=== PATIENT | male | born 1940 | race African-American/Black ===

== ENCOUNTER 2016-12-16 09:35 | Emergency (ER) | payer MEDICARE, OTHER ==
[~2016-12-16] VITALS: Ht 162.6 cm; Wt 85.0 kg
--- NOTE | ~2016-12-16 | EKG ---
PATIENT: THA HOPSON UNIT #: [id number] Ventricular Rate: 61 BPM Atrial Rate: 61 BPM P-R Interval: 188 ms QRS Duration: 82 ms Q-T Interval: 398 ms QTC Calculation(Bezet): 400 ms P Albert: 63 degrees Calculated R Albert: 42 degrees Calculated T Albert: 71 degrees Diagnosis Line: Sinus rhythm with marked sinus arrhythmia Diagnosis Line: Otherwise normal ECG Diagnosis Line: When compared with ECG of 09-JUN-2010 14:17, Diagnosis Line: Vent. rate has decreased BY 41 BPM Diagnosis Line: Confirmed by AILEEN CHEW MD ([id number]) on Diagnosis Line: 12/17/2016 4:59:20 PM INTERPRETING MD: FRANCO
--- NOTE | ~2016-12-16 | CR72 ---
[facility] A Service of [facility] & [facility] RADIOLOGY TEXT RESULTS PATIENT: THA HOPSON LOCATION: [facility] : 39 UNIT #: [id number] AGE: [address]: Reji Conroy MD SEX: M ORDER DR: [id number] [facility] [address] [place], [place] [address] [id number] E MR#: [id number] Acc #: [id number] NAME: THA HOPSON : 1940 SEX: M STUDY DATE/TIME: 12/16/2016 10:20 UNIT: [facility] ROOM: STUDY DESCRIPTION: CR Chest Single View Portable Attending Physician: Reji Conroy M.D. Ordering Physician: Reji Conroy M.D. Primary Care Physician: Trey Moore M.D. MEDICAL IMAGING REPORT This report is preliminary unless electronic signature is present EXAM Portable chest INDICATION Dyspnea today. COMPARISON 03/14/2016 FINDINGS Stable elevation of the left hemidiaphragm with chronic left base scarring/atelectasis. Heart size stable. Visualized osseous structures unremarkable. IMPRESSION No active disease. Dictated by... Arthur Curiel M.D. THIS IS AN ELECTRONICALLY VERIFIED REPORT Arthur Curiel M.D. at 12/17/2016 7:34 AM OLIVIA/kalpesh TD: 12/17/2016 06:58 JOB #: [id number] MEDICAL IMAGING REPORT Page 1 of 1 COPY
[~2016-12-16 09:35] MED LIST: ACETAMINOPHEN PO; AVANDIA PO; BACTRIM DS TABL1 TAB PO; CELLCEPT PO; CLONIDINE PO; COLACE PO; DIOVAN PO; FLOMAX0.4 MG PO; GENGRAF PO; GLYBURIDE PO; GLYNASE PO; LISINOPRIL PO; METOCLOPRAMI10 MG/ML PO; MUCINEX DM1 TAB.SR . PO; NEORAL100 MG/ML PO; OXAPROZIN600 MG PO; PREDNISOLO15 MG/5 ML PO; PREDNISONE PO; PRILOSEC PO; SULAR PO; TAMIFLU75 MG PO; ZOCOR PO
[2016-12-16 10:05] LABS: BASOPHIL# 0.1 X10e3 (0-0.3); BASOPHIL% 0.7 % (0-2.5); DIFF IND NO; EOSINOPHIL# 0.2 X10e3 (0-0.7); EOSINOPHIL% 2.9 % (0.0-7.0); HEMATOCRIT 37.2 % (38.0-50.0); HEMOGLOBIN 12.2 gm/dL (13.0-16.0); LYMPHOCYTE# 1.8 X10e3 (1.0-3.5); LYMPHOCYTE% 23.7 % (17.0-45.0); MEAN CORPUSCULAR HEMOGLOBIN 26.9 PG (28-34); MEAN CORPUSCULAR HGB CONC 32.8 g/dL (30-36); MEAN PLATELET VOLUME 7.7 FL (6.5-11.5); MONOCYTE# 0.5 X10e3 (0-1.0); MONOCYTE% 6.1 % (3.0-12.0); NEUTROPHIL# 5.1 X10e3 (1.5-7.1); NEUTROPHIL% 66.6 % (40-75); PLATELET COUNT 199 X10e3 (140-420); RED BLOOD COUNT 4.53 X10e (3.90-5.60); WHITE BLOOD COUNT 7.6 X10e3 (4.0-10.5)
[2016-12-16 10:17] LABS: POC - CKMB 1.6 ng/mL (0.0-7.9); POC - TROPONIN <0.05 ng/mL (<=0.05)
[2016-12-16 10:18] LABS: INR 0.9; PROTHROMBIN TIME (PATIENT) 10.3 SECONDS (10.0-11.7)
[2016-12-16 10:34] LABS: ALBUMIN SERUM 3.5 g/dL (3.5-5.0); BILIRUBIN, DIRECT 0.1 mg/dL (0.0-0.2); BILIRUBIN,INDIRECT 0.4 mg/dL (0.0-0.9); BILIRUBIN,TOTAL 0.5 mg/dL (0.2-2.0); BUN/CREATININE RATIO 18.18; CALCIUM SERUM 8.5 mg/dL (8.4-10.2); CREATININE SERUM 1.1 mg/dL (0.6-1.4); GLOM FILT RATE Estimated 74.7 mL/min (>60); POTASSIUM 3.8 mmol/L (3.5-5.1); PROTEIN TOTAL SERUM 6.9 g/dL (6.0-8.3)
[2016-12-16] MEDS ORDERED: CLARITIN10 M3 PO (10:48)
[2016-12-16] MEDS ORDERED: LIPITOR PO (10:49)
[2016-12-16] MEDS ORDERED: VITAMIN D10000 UNIT PO (10:49)
[2016-12-16] MEDS ORDERED: AMLODIPINE BESYL5 MG PO (10:50)
[2016-12-16] MEDS ORDERED: GLUCOTROL10 MG PO (10:50)
[2016-12-16] MEDS ORDERED: LANTUS SOL100 UNIT/1 SUBQ (10:50)
[2016-12-16] MEDS ORDERED: ZANTAC150 M1 PO (10:51)
== END 2016-12-16 11:15 | disposition home or self-care (01) ==
LOC: CED 09:35
PROVIDERS: Emergency Medicine
DX: R06.02 Shortness of breath (principal); I10 Essential (primary) hypertension; Z87.442 Personal history of urinary calculi; Z79.899 Other long term (current) drug therapy; Z79.4 Long term (current) use of insulin
CPT/HCPCS: 36415; 71010; 80048; 80076; 82553; 83880; 84484; 85025; 85610; 87040; 93005; 99285

== ENCOUNTER 2017-01-06 19:20 | Emergency (ER) | payer MEDICARE, OTHER ==
[~2017-01-06] VITALS: Ht 162.6 cm; Wt 83.9 kg
--- NOTE | ~2017-01-06 | MR18 ---
[facility] A Service of [facility] RADIOLOGY TEXT RESULTS PATIENT: THA HOPSON LOCATION: [facility] : 38 UNIT #: [id number] AGE: [address]: Chencho Adams MD SEX: M ORDER DR: [id number] [facility] [address] [place], [place] [address] [id number] E MR#: [id number] Acc #: [id number] NAME: THA HOPSON : 1940 SEX: M STUDY DATE/TIME: 01/06/2017 22:27 UNIT: [facility] ROOM: STUDY DESCRIPTION: MR Brain Wo Contrast Attending Physician: Chencho Adams M.D. Ordering Physician: Chencho Adams M.D. Primary Care Physician: Trey Moore M.D. MRI CENTER REPORT This report is preliminary unless electronic signature is present. EXAM Brain MR without contrast 01/06/2017 PROCEDURE Routine unenhanced brain MRI. COMPARISON None. CLINICAL HISTORY Double vision, transient now resolved. FINDINGS There is no MR evidence of acute ischemia. There is no intracranial hemorrhage, hydrocephalus or extraaxial fluid collection. Bone marrow signal is normal. Normal flow voids are seen in the cerebral vessels. There is some old hypointensity in the left dentate nucleus probably some old calcification or possibly old blood product but again no acute hemorrhage is seen. There is volume loss and moderate white matter change, nonspecific but typical of chronic small vessel disease. Again no acute abnormality is seen. IMPRESSION No acute abnormality. No acute hemorrhage or mass. There is some old hemosiderin or other hypointensity in the left dentate nucleus, clearly chronic and of no acute significance, and there is moderately advanced volume loss and nonspecific chronic small vessel type white matter change but again no acute abnormality is seen. Dictated by... Medardo Patel M.D. [facility] A Service of [facility] & [facility] RADIOLOGY TEXT RESULTS PATIENT: THA HOPSON LOCATION: [facility] : 38 UNIT #: [id number] AGE: [address]: Chencho Adams MD SEX: M ORDER DR: THIS IS AN ELECTRONICALLY VERIFIED REPORT Medardo Patel M.D. at 01/11/2017 7:32 AM VERONICA/kalia TD: 01/07/2017 13:35 JOB #: [id number] MRI CENTER REPORT Page 1 of 1 COPY
[~2017-01-06 19:20] MED LIST changes: +AMLODIPINE BESYL5 MG PO; +CLARITIN10 M3 PO; +GLUCOTROL10 MG PO; +LANTUS SOL100 UNIT/1 SUBQ; +LIPITOR PO; +VITAMIN D10000 UNIT PO; +ZANTAC150 M1 PO
[2017-01-06 21:16] LABS: BASOPHIL% 0.4 % (0-2.5); EOSINOPHIL# 0.1 X10e3 (0-0.7); EOSINOPHIL% 1.5 % (0.0-7.0); HEMATOCRIT 39.8 % (38.0-50.0); HEMOGLOBIN 12.9 gm/dL (13.0-16.0); LYMPHOCYTE% 11.1 % (17.0-45.0); MEAN CORPUSCULAR HEMOGLOBIN 26.6 PG (28-34); MEAN CORPUSCULAR HGB CONC 32.4 g/dL (30-36); MEAN PLATELET VOLUME 8.1 FL (6.5-11.5); MONOCYTE# 0.6 X10e3 (0-1.0); MONOCYTE% 6.8 % (3.0-12.0); NEUTROPHIL# 6.9 X10e3 (1.5-7.1); NEUTROPHIL% 80.2 % (40-75); PLATELET COUNT 223 X10e3 (140-420); RED BLOOD COUNT 4.85 X10e (3.90-5.60); RED CELL DISTRIBUTION WIDTH 13.9 % (11.0-15.5); WHITE BLOOD COUNT 8.7 X10e3 (4.0-10.5)
[2017-01-06 21:17] LABS: DIFF IND NO
[2017-01-06 21:37] LABS: BUN/CREATININE RATIO 17.5; CREATININE SERUM 1.2 mg/dL (0.6-1.4); GLOM FILT RATE Estimated 67.2 mL/min (>60); POTASSIUM 3.5 mmol/L (3.5-5.1)
[2017-01-06 21:43] LABS: PARTIAL THROMBOPLASTIN TIME 25.2 SECONDS (23.5-31.3); PROTHROMBIN TIME (PATIENT) 10.7 SECONDS (10.0-11.7)
== END 2017-01-07 01:40 | disposition home or self-care (01) ==
LOC: CED 19:20
PROVIDERS: Emergency Medicine
DX: H53.2 Diplopia (principal); E11.9 Type 2 diabetes mellitus without complications; I10 Essential (primary) hypertension; Z79.899 Other long term (current) drug therapy
CPT/HCPCS: 36415; 70551; 80048; 85025; 85610; 85730; 99284